=== PATIENT | male | born 1975 | race Caucasian/White ===

== ENCOUNTER 2019-05-18 12:07 | Emergency (ER) | payer OTHER ==
[2019-05-18] MEDS ORDERED: Sodium Chloride 0.9% 10 ML Syringe FLUSH PRN (12:13)
[2019-05-18] MEDS ORDERED: Ondansetron 4 MG/2 ML SDV IVPUSH ONE (12:14)
[2019-05-18] MEDS ORDERED: HYDROmorphone 2 MG/ML SDV IVPUSH ONE ×2 (12:14→12:44)
[2019-05-18] MEDS ORDERED: Sodium Chloride 0.9% 1,000 ML IV ONE (12:14)
[2019-05-18] MEDS ORDERED: Ketorolac 30 MG/ML SDV IVPUSH ONE (12:21)
--- NOTE | 2019-05-18 12:27 | EDM.PDOC ---
ED HPI GENERAL MEDICAL PROBLEM - General Chief Complaint: Flank Pain Stated Complaint: Right flank pain, severe Time Seen by Provider: 05/18/19 12:12 Source of Information: Reports: Patient History Limitations: Reports: No Limitations - History of Present Illness INITIAL COMMENTS - FREE TEXT/NARRATIVE: 43-year-old male who reports that at approximately 11:15 AM today while sitting down at home he developed a dull ache in his right flank and mid back. This pain progressively worsened rather rapidly and became a sharp and stabbing pain that radiated around to his right abdomen. He had some nausea associated with this but no vomiting as of yet. The pain is rated by him as a 10/10. Nothing seems to make the pain better. Nothing seems to make the pain worse. He cannot find a comfortable position. He had no antecedent problems. In fact, he reports that he felt completely normal prior to this pain beginning. No fevers. No chills. No cough. No difficulty breathing. There are no other associated signs or symptoms. There are no other modifying factors. Onset: Today Duration: Getting Worse Location: Reports: Abdomen (And right flank) Quality: Reports: Sharp, Stabbing Improves with: Reports: None Worsens with: Reports: None Context: Reports: Other (As above) Associated Symptoms: Reports: Nausea/Vomiting Treatments [employer]: Reports: Other (see below) (Nothing) RT FLANK Pain Score (Numeric/FACES): 10 - Related Data Allergies Allergy/AdvReac Type Severity Reaction Status Date / Time adhesive tape Allergy Hives Verified 05/18/19 12:19 Home Meds: Home Meds HYDROmorphone [Dilaudid] 1 - 2 tab PO Q6H PRN #10 tab 05/18/19 [Rx] Ondansetron [Zofran ODT] 4 mg PO Q6H PRN #8 tab.dis 05/18/19 [Rx] Tamsulosin HCl [Flomax] 0.4 mg PO BEDTIME #7 cap.er.24h 05/18/19 [Rx] Past Medical History Cardiovascular History: Reports: Blood Clots/VTE/DVT Respiratory History: Reports: PE Genitourinary History: Reports: Renal Calculus - Past Surgical History Musculoskeletal Surgical History: Reports: Arthroscopic Knee (Left knee 2; right knee 1) Social & Family History - Tobacco Use Smoking Status *Q: Unknown Ever Smoked (Nonsmoker) - Alcohol Use Alcohol Use History: Yes Alcohol Use Frequency: Rarely - Living Situation & Occupation Living situation: Reports: (He is here with his .) 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 Denies: Dysuria, Frequency, Hematuria, Urgency Musculoskeletal: Reports: Back Pain (Right mid back) Skin: Reports: No Symptoms Neurological: Reports: No Symptoms Hematologic/Lymphatic: Reports: No Symptoms (Not chronically anticoagulated at present.) Immunologic: Reports: No Symptoms ED EXAM, GI/ABD - Physical Exam Exam: See Below Exam Limited By: No Limitations General Appearance: Alert, WD/WN, Moderate Distress, Other (Writhing in pain) Eyes: Bilateral: Normal Appearance, EOMI Ears: Normal External Exam Nose: Normal Inspection, Normal Mucosa, No Blood Throat/Mouth: Normal Inspection, Normal Oropharynx, Normal Voice, No Airway Compromise Head: Atraumatic, Normocephalic Neck: Normal Inspection, Supple, Non-Tender, Full Range of Motion Respiratory/Chest: No Respiratory Distress, Lungs Clear, Normal Breath Sounds, No Accessory Muscle Use, Chest Non-Tender Cardiovascular: Normal Peripheral Pulses, Regular Rate, Rhythm, No JVD GI/Abdominal Exam: Soft, Non-Tender, No Mass, Abnormal Bowel Sounds (Bowel sounds are somewhat quiet.) Back Exam: Normal Inspection. No: CVA Tenderness (R), CVA Tenderness (L) Extremities: Normal Inspection, Normal Range of Motion, Non-Tender, Normal Capillary Refill, No Pedal Edema Neurological: Alert, Oriented, CN II-XII Intact, Normal Cognition, No Motor/ Sensory Deficits Skin Exam: Warm, Dry, Intact, Normal Color, No Rash Course - Vital Signs Last Recorded V/S: Last Vital Signs Temp 36.4 C 05/18/19 13:28 Pulse 69 05/18/19 13:28 Resp 17 05/18/19 13:28 BP 142/92 H 05/18/19 13:28 Pulse Ox 95 05/18/19 13:28 - Orders/Labs/Meds Orders: Active Orders 24 hr Category Date Time Status CULTURE URINE [RM] Stat Lab 05/18/19 13:18 Received Sodium Chloride 0.9% [Saline Flush] Med 05/18/19 12:13 Active 10 ml FLUSH ASDIRECTED PRN Peripheral IV Insertion Adult [OM.PC] Routine Oth 05/18/19 12:13 Ordered Medication Orders Sodium Chloride (Saline Flush) 10 ml FLUSH ASDIRECTED PRN PRN Reason: Keep Vein Open Last Admin: 05/18/19 12:21 Dose: 10 ml Labs: Laboratory Tests 05/18/19 05/18/19 05/18/19 Range/Units 12:25 12:25 12:25 WBC 8.9 (4.5-12.0) X10-3/uL RBC 5.28 (4.30-5.75) x10(6)uL Hgb 16.5 (13.5-17.8) g/dL Hct 46.8 (30.0-51.3) % MCV 88.7 (80-96) fL MCH 31.3 (27.7-33.6) pg MCHC 35.3 (32.2-35.4) g/dL RDW 11.4 L (11.5-15.5) % Plt Count 283 (125-369) X10(3)uL MPV 8.3 (7.4-10.4) fL Neut % (Auto) 44.6 L (46-82) % Lymph % (Auto) 46.0 H (13-37) % [place] % (Auto) 5.5 (4-12) % Eos % (Auto) 3 (1.0-5.0) % Baso % (Auto) 1 (0-2) % Neut # (Auto) 4.0 (1.6-8.3) # Lymph # (Auto) 4.0 (0.6-5.0) # [place] # (Auto) 0.5 (0.0-1.3) # Eos # (Auto) 0.3 (0.0-0.8) # Baso # (Auto) 0.1 (0.0-0.2) # PT 9.7 (8.7-11.1) INR 1.00 (0.89-1.13) Sodium 142 (135-145) mmol/L Potassium 3.7 (3.5-5.3) mmol/L Chloride 103 (100-110) mmol/L Carbon Dioxide 27 (21-32) mmol/L BUN 13 (7-18) mg/dL Creatinine 1.4 H (0.70-1.30) mg/dL Est Cr Clr Drug Dosing 81.81 mL/min Estimated GFR (MDRD) 55 L (>60) BUN/Creatinine Ratio 9.3 (9-20) Glucose 111 (80-116) mg/dL Calcium 9.2 (8.6-10.2) mg/dL Total Bilirubin 0.5 (0.1-1.3) mg/dL AST 26 H (5-25) IU/L ALT 61 H (12-36) U/L Alkaline Phosphatase 129 H (56-112) IU/L C-Reactive Protein (0.5-0.9) mg/dL Total Protein 7.5 (6.0-8.0) g/dL Albumin 4.1 (3.5-5.2) g/dL Globulin 3.4 g/dL Albumin/Globulin Ratio 1.2 Urine Color (YELLOW) Urine Appearance (CLEAR) Urine pH (5.0-6.5) Ur Specific [place] (1.010-1.025) Urine Protein (NEGATIVE) mg/dL Urine Glucose (UA) (NORMAL) mg/dL Urine Ketones (NEGATIVE) mg/dL Urine Occult Blood (NEGATIVE) Urine Nitrite (NEGATIVE) Urine Bilirubin (NEGATIVE) Urine Urobilinogen (NEGATIVE) mg/dL Ur Leukocyte Esterase (NEGATIVE) Urine RBC (0-5) Urine WBC (0-5) Ur Squamous Epith Cells (NS,R,O) Urine Bacteria (NS) 05/18/19 05/18/19 Range/Units 12:25 13:18 WBC (4.5-12.0) X10-3/uL RBC (4.30-5.75) x10(6)uL Hgb (13.5-17.8) g/dL Hct (30.0-51.3) % MCV (80-96) fL MCH (27.7-33.6) pg MCHC (32.2-35.4) g/dL RDW (11.5-15.5) % Plt Count (125-369) X10(3)uL MPV (7.4-10.4) fL Neut % (Auto) (46-82) % Lymph % (Auto) (13-37) % [place] % (Auto) (4-12) % Eos % (Auto) (1.0-5.0) % Baso % (Auto) (0-2) % Neut # (Auto) (1.6-8.3) # Lymph # (Auto) (0.6-5.0) # [place] # (Auto) (0.0-1.3) # Eos # (Auto) (0.0-0.8) # Baso # (Auto) (0.0-0.2) # PT (8.7-11.1) INR (0.89-1.13) Sodium (135-145) mmol/L Potassium (3.5-5.3) mmol/L Chloride (100-110) mmol/L Carbon Dioxide (21-32) mmol/L BUN (7-18) mg/dL Creatinine (0.70-1.30) mg/dL Est Cr Clr Drug Dosing mL/min Estimated GFR (MDRD) (>60) BUN/Creatinine Ratio (9-20) Glucose (80-116) mg/dL Calcium (8.6-10.2) mg/dL Total Bilirubin (0.1-1.3) mg/dL AST (5-25) IU/L ALT (12-36) U/L Alkaline Phosphatase (56-112) IU/L C-Reactive Protein < 0.2 L (0.5-0.9) mg/dL Total Protein (6.0-8.0) g/dL Albumin (3.5-5.2) g/dL Globulin g/dL Albumin/Globulin Ratio Urine Color Yellow (YELLOW) Urine Appearance Clear (CLEAR) Urine pH 7.0 H (5.0-6.5) Ur Specific [place] 1.015 (1.010-1.025) Urine Protein Negative (NEGATIVE) mg/dL Urine Glucose (UA) Normal (NORMAL) mg/dL Urine Ketones Negative (NEGATIVE) mg/dL Urine Occult Blood Moderate H (NEGATIVE) Urine Nitrite Negative (NEGATIVE) Urine Bilirubin Negative (NEGATIVE) Urine Urobilinogen Normal (NEGATIVE) mg/dL Ur Leukocyte Esterase Negative (NEGATIVE) Urine RBC 20-30 H (0-5) Urine WBC 0-5 (0-5) Ur Squamous Epith Cells Few H (NS,R,O) Urine Bacteria Few H (NS) Meds: Medications Generic Name Dose Route Start Last Admin Trade Name Freq PRN Reason Stop Dose Admin Sodium Chloride 10 ml 05/18/19 12:13 05/18/19 12:21 Saline Flush FLUSH 10 ml ASDIRECTED PRN Administration Keep Vein Open Discontinued Medications Generic Name Dose Route Start Last Admin Trade Name Freq PRN Reason Stop Dose Admin Hydromorphone HCl 1 mg 05/18/19 12:14 05/18/19 12:22 Dilaudid IVPUSH 05/18/19 12:15 1 mg ONETIME ONE Administration Hydromorphone HCl 1 mg 05/18/19 12:44 05/18/19 12:47 Dilaudid IVPUSH 05/18/19 12:45 1 mg ONETIME ONE Administration Sodium Chloride 1,000 mls @ 999 mls/hr 05/18/19 12:14 05/18/19 12:21 Normal Saline IV 05/18/19 13:14 999 mls/hr .BOLUS ONE Administration Ketorolac Tromethamine 30 mg 05/18/19 12:21 05/18/19 12:25 Toradol IVPUSH 05/18/19 12:22 30 mg ONETIME ONE Administration Ondansetron HCl 4 mg 05/18/19 12:14 05/18/19 12:22 Zofran IVPUSH 05/18/19 12:15 4 mg ONETIME ONE Administration - Re-Assessments/Exams Free Text/Narrative Re-Assessment/Exam: 05/18/19 12:35: Patient reports that his pain has dropped to an 8/10. He has received 1 mg of Dilaudid and 30 mg of Toradol IV. We will continue to monitor. 05/18/19 12:45: Pain is going back up now to a 10/10. I will give the patient another milligram of Dilaudid IV. 05/18/19 13:45: Patient's lungs tests show a creatinine of 1.4 which is increased from his previous of 0.9. He also has some mild LFT elevations of unclear etiology or significance. His urinalysis shows blood and a few white cells but represents a voided specimen. I did send it for culture but it does not appear to represent an infection. His pain is currently had a 1/10. He feels much improved. He has ambulated without problems. He has urinated without problems. The plan at this point will be to discharge the patient with pain medication and nausea medication and also Flomax. He will need to strain all of his urine and increase his fluid intake and he should follow-up with Dr. Almodovar this coming week. Departure - Departure Time of Disposition: 13:50 Disposition: Home, Self-Care 01 Condition: Good (Improved) Clinical Impression: Renal colic on right side, Elevated LFTs, Elevated serum creatinine - Discharge Information Prescriptions: HYDROmorphone [Dilaudid] 1 - 2 tab PO Q6H PRN #10 tab PRN Reason: Moderate to severe pain Ondansetron [Zofran ODT] 4 mg PO Q6H PRN #8 tab.dis PRN Reason: Nausea/Vomiting Tamsulosin HCl [Flomax] 0.4 mg PO BEDTIME #7 cap.er.24h Instructions: Renal Colic, [id number], Liver Function Tests, Kidney Stones, [id number], Serum Creatinine Test Referrals: Brennan Almodovar MD [Primary Care Provider] - Forms: ED Department Discharge Additional Instructions: You appear to have a kidney stone passing from your kidney to your bladder on the right side. As has happened in the past with you, this stone may pass on its own. You should rest. You should drink plenty of fluids. Medication as prescribed (Dilaudid 1 g tablets, Zofran 4 mg ODT, Flomax 0.4 mg). You should take the Flomax when you get home today but on all other days, you should take the Flomax at bedtime. Follow-up with Dr. Almodovar this week as you may need further testing. Back to the emergency department for marked increase in pain that is uncontrolled with your pain medication, unrelenting vomiting, fever, inability to urinate or any other concerning sign or symptom. As we discussed, your liver associated tests or liver function tests were slightly elevated. I am unsure why this has occurred. It is something that you need to follow-up with your primary doctor. Your creatinine level (a measure of kidney function) is also elevated. This may be due to dehydration or related to your kidney stones. It is also something that needs to be followed up by your primary doctor. - My Orders Last 24 Hours: My Active Orders 05/18/19 12:13 Sodium Chloride 0.9% [Saline Flush] 10 ml FLUSH ASDIRECTED PRN Peripheral IV Insertion Adult [OM.PC] Routine 05/18/19 13:18 CULTURE URINE [RM] Stat - Assessment/Plan Last 24 Hours: My Active Orders 05/18/19 12:13 Sodium Chloride 0.9% [Saline Flush] 10 ml FLUSH ASDIRECTED PRN Peripheral IV Insertion Adult [OM.PC] Routine 05/18/19 13:18 CULTURE URINE [RM] Stat
== END 2019-05-18 14:10 | disposition home or self-care (01) ==
LOC: FB.ED 12:07
DX: N23 Unspecified renal colic (principal); R94.5 Abnormal results of liver function studies; R79.89 Other specified abnormal findings of blood chemistry; Z79.899 Other long term (current) drug therapy; Z91.048 Other nonmedicinal substance allergy status
CPT/HCPCS: 36415; 80053; 81001; 85025; 85610; 86140; 87086; 96361; 96374; 96375; 99284; J1170; J1885; J2405; J7030